=== PATIENT | female | born 1975 | race Caucasian/White ===

== ENCOUNTER 2018-04-11 10:14 | Emergency (ER) | payer OTHER ==
[2018-04-11] MEDS ORDERED: SODIUM CHLORIDE 1,000 ML IV STA (10:39)
[2018-04-11] MEDS ORDERED: ALBUTEROL SO4 0.083% IH SOL 2.5 MG/3 ML VIAL.NEB. NEB ONE ×2 (10:40→11:20)
[2018-04-11] MEDS ORDERED: IBUPROFEN 800 MG/8 ML IJ IVPB ONE ×2 (10:40→11:20)
[2018-04-11 10:41] VITALS: BMI 37.4
--- NOTE | 2018-04-11 10:45 | PDOC ---
History of Present Illness - General Chief Complaint: Chest Pain Stated Complaint: CHEST PAIN SHORT OF BREATH Time Seen by Provider: 04/11/18 10:15 History Source: Patient Exam Limitations: No Limitations - History of Present Illness Initial Comments: 04/11/18 10:41 Mr. Damian is a 42-year-old female with a history of hypothyroidism, asthma, obstructive sleep apnea who presents to the emergency department with a complaint of chest pain and shortness of breath. Patient states she has had a cough for approximately 3 weeks. She has intermittently been taking albuterol for this. Last night she noted that when she coughs she developed chest pain. She continued to have these symptoms today and this was associated with dizziness. This probably her visit to the ER. Patient states she last took Advil at approximately 6:30 this morning She denies any recent travel. She denies ill contacts. No flu shot. She denies nausea, vomiting, diarrhea. She denies abdominal pain. She denies dysuria, flank pain. PMH: Hypothyroidism, objective sleep apnea, asthma PSH: 3, tummy tuck Medication: Levothyroxine 25 g, albuterol when necessary ALLERGIES: Shrimp, IV/by mouth contrast Social: Denies alcohol, drug, cigarette, marijuana use ROS: GENERAL/CONSTITUTIONAL: Yes: fever, chills, weakness HEAD, EYES, EARS, NOSE AND THROAT: No: change in vision, ear pain, discharge, sore throat, throat swelling. CARDIOVASCULAR: Yes: chest pain No: lightheadedness, palpitations, syncope RESPIRATORY: Yes: cough, shortness of breath, wheezing GASTROINTESTINAL: No: nausea, vomiting, diarrhea, abdominal pain GENITOURINARY: No: dysuria, hematuria, frequency, urgency, flank pain. MUSCULOSKELETAL: No: back pain SKIN AND BREASTS: No: lesions, pallor, rash or easy bruising. NEUROLOGIC: No: headache, vertigo, paresthesias, weakness ENDOCRINE: No: unexplained weight gain or loss HEMATOLOGIC/LYMPHATIC: No: anemia, easy bleeding, swelling nodes. PE: GENERAL: The patient is in no acute distress. HEAD: Normal EYES: PERRLA, EOMI, sclera anicteric, conjunctiva clear. ENT: Ears normal, nares patent, oropharynx clear without exudates. Moist mucous membranes. NECK: Normal range of motion, supple without lymphadenopathy, JVD, or masses. LUNGS: (+) coughing, expiratory wheezing left >right HEART: Tachycardia, regular rhythm, no murmur ABDOMEN: Soft, nontender, normoactive bowel sounds. No guarding, no rebound. No masses palpable. EXTREMITIES: Normal range of motion, no edema. . NEUROLOGICAL: Cranial nerves II through XII grossly intact. Normal speech. No focal neurological deficits. MUSCULOSKELETAL: no CVA tenderness SKIN: Warm, Dry, normal turgor, no rashes or lesions noted. Past History - Past Medical History Allergies/Adverse Reactions: Allergies Allergy/AdvReac Type Severity Reaction Status Date / Time Iodinated Contrast- Oral and Allergy Severe Verified 04/11/18 10:25 IV Dye Home Medications: Ambulatory Orders Albuterol 0.083% Nebulizer Alaina [Ventolin 0.083% Nebulizer Soln -] 1 neb NEB Q6H #30 vial 04/11/18 Albuterol Sulfate Inhaler - [Ventolin HFA Inhaler -] 1 puff IN PRN 04/11/18 Amoxicillin/Potassium Clav [Augmentin 875-125 Tablet] 1 each PO BID #14 tablet 04/11/18 Azithromycin [Zithromax 250mg Tablets -] 250 mg PO UTDICT #6 tab 04/11/18 Benzonatate [Tessalon Pearls -] 100 mg PO TID PRN #21 capsule 04/11/18 Ferrous Sulfate, Dried [Iron] 159 mg PO DAILY 04/11/18 Guaifenesin [Mucinex -] 600 mg PO BID #14 tablet.er 04/11/18 Levothyroxine [Synthroid -] 1 tab PO DAILY 04/11/18 Nebulizer and Compressor [Comp-Air Nebulizer System] 1 each .ROUTE ASDIR PRN #1 each 04/11/18 Asthma: Yes COPD: No Thyroid Disease: Yes - Suicide/Smoking/Psychosocial Hx Smoking History: Never smoked Information on smoking cessation initiated: No Hx Alcohol Use: No Drug/Substance Use Hx: No *Physical Exam - Vital Signs Last Vital Signs Temp Pulse Resp BP Pulse Ox 99.7 F H 128 H 20 121/75 100 04/11/18 10:15 04/11/18 10:15 04/11/18 10:15 04/11/18 10:15 04/11/18 10:15 Moderate Sedation - Procedure Monitoring Vital Signs: Procedure Monitoring Vital Signs Temperature 99.7 F H 04/11/18 10:15 Pulse Rate 128 H 04/11/18 10:15 Respiratory Rate 20 04/11/18 10:15 Blood Pressure 121/75 04/11/18 10:15 O2 Sat by Pulse Oximetry (%) 100 04/11/18 10:15 ED Treatment Course - LABORATORY CBC & Chemistry Diagram: 04/11/18 11:17 04/11/18 11:17 - RADIOLOGY Radiology Studies Ordered: Category Date Time Status CHEST PA & LAT [RAD] Stat Radiology 04/11/18 10:40 Ordered Medical Decision Making - Medical Decision Making 04/11/18 10:45 Selected Entries 04/11/18 10:15 Temperature 99.7 F H Pulse Rate 128 H Respiratory 20 Rate Blood Pressure 121/75 O2 Sat by Pulse 100 Oximetry (%) Rectal temp 101.3 Will do: Labs, IVF CXR Motrin Nebs Re Assess 04/11/18 11:06 EKG : Sinus tachycardia rate of 125 bpm, axis nml, intervals nml, no st elevation or depression 04/11/18 11:32 Laboratory Tests 04/11/18 04/11/18 10:29 11:17 WBC 7.0 Hgb 11.0 Hct 34.2 Plt Count 402 Urine Blood Negative Urine Nitrite Negative Ur Leukocyte Esterase Negative Urine HCG, Qual Negative 04/11/18 12:09 CXR demonstrates RML consolidation CURB-65 0 Reasonable to start with outpatient treatment Will give Ceftriaxone and Azithromycin Will discharge on Augmentin and Azithromycin Pt asked to monitor for fevers and progression of shortness of breath.chest pain pt asked to follow up with PMD on Monday or Monday (in 2 or 3 business days) Pt given copies of CXR and labs 04/11/18 12:56 *DC/Admit/Observation/Transfer Diagnosis at time of Disposition: Pneumonia Qualifiers: Pneumonia type: due to unspecified organism Laterality: right Lung location: middle lobe of lung Qualified Code(s): J18.1 - Lobar pneumonia, unspecified organism - Discharge Dispostion Disposition: HOME Condition at time of disposition: Stable Decision to Admit order: No - Prescriptions Prescriptions: Albuterol 0.083% Nebulizer Alaina [Ventolin 0.083% Nebulizer Soln -] 1 neb NEB Q6H #30 vial Amoxicillin/Potassium Clav [Augmentin 875-125 Tablet] 1 each PO BID #14 tablet Azithromycin [Zithromax 250mg Tablets -] 250 mg PO UTDICT #6 tab Benzonatate [Tessalon Pearls -] 100 mg PO TID PRN #21 capsule PRN Reason: Cough Guaifenesin [Mucinex -] 600 mg PO BID #14 tablet.er Nebulizer and Compressor [Comp-Air Nebulizer System] 1 each .ROUTE ASDIR PRN #1 each PRN Reason: Shortness Of Breath - Referrals - Patient Instructions Printed Discharge Instructions: DI for Pneumonia -- Adult Additional Instructions: Thank you for coming in to the ER today YOU HAVE PNEUMONIA You were given 2 antibiotics in the ER You will be taking 2 additional antibiotics at home Please be sure to monitor yourself for fevers Please take Motin 600mg with food or milk in alternation with Tylenol 1000mg ( 2 extra strength tylenols) as needed for fevers, body aches Please stay well hydrated You MUST follow up with your primary care physician within 2 -3 business days for re assessment If you are not improving on oral antibiotics, you will need to be admitted to the hospital - Post Discharge Activity Forms/Work/School Notes: Back to Work
[2018-04-11 10:52] LABS: HCG,QUALITATIVE URINE Negative
[2018-04-11 11:03] LABS: URINE APPEARANCE Clear; URINE BILIRUBIN Negative (NEGATIVE); URINE COLOR Yellow; URINE GLUCOSE (UA) Negative (NEGATIVE); URINE KETONE Trace (NEGATIVE); URINE LEUK ESTERASE Negative (NEGATIVE); URINE NITRITE Negative (NEGATIVE); URINE PROTEIN Negative (NEGATIVE); URINE UROBILINOGEN 0.2 (0.2-1.0)
[2018-04-11 11:27] LABS: BASO % 0.5 % (0-2.0); EOS % 2.2 % (0-4.5); HEMATOCRIT 34.2 % (32.4-45.2); MCH 26.5 pg (25.7-33.7); MCHC 32.2 g/dl (32.0-36.0); MEAN CELL VOLUME 82.4 fl (80-96); MEAN PLT VOLUME 7.2 fl (7.5-11.1); MONO % 9.1 % (3.8-10.2); NEUT % 76.2 % (42.8-82.8); PLATELET COUNT 402 K/MM3 (134-434); RBC 4.14 M/mm3 (3.60-5.2)
[2018-04-11 11:39] LABS: ALBUMIN 3.7 g/dl (3.4-5.0); ALK PHOS 72 U/L (45-117); ANION GAP 4 MMOL/L (8-16); BILIRUBIN,TOTAL 0.3 mg/dl (0.2-1); BLOOD UREA NITROGEN 9 mg/dl (7-18); CALCIUM 8.9 mg/dl (8.5-10); CHLORIDE 105 mmol/L (98-107); CO2 24 mmol/L (21-32); CREATININE 0.5 mg/dl (0.55-1.3); GLUCOSE,RANDOM 95 mg/dl (74-106); POTASSIUM 3.6 mmol/L (3.5-5.1); SGOT/AST 17 U/L (15-37); SGPT/ALT 15 U/L (13-61); SODIUM 133 mmol/L (136-145)
[2018-04-11] MEDS ORDERED: AZITHROMYCIN IVPB 500 MG in DEXTROSE 5%-WATER - 250 ML IVPB ONE (12:04)
[2018-04-11] MEDS ORDERED: CEFTRIAXONE 1 GM in DEXTROSE 5%-WATER - 50 ML IVPB ONE (12:04)
[2018-04-11] MEDS ORDERED: AZITHROMYCIN 500 MG VIAL IVPB ONE (12:06)
[2018-04-11] MEDS ORDERED: cefTRIAXone SODIUM 1 GM VIAL ONE (12:07)
[2018-04-11 13:23] VITALS: BP 97/51; PULSE 115; TEMP 99.2
--- NOTE | 2018-04-12 16:46 | EKG ---
Test Reason : Blood Pressure : / mmHG Vent. Rate : 125 BPM Atrial Rate : 125 BPM P-R Int : 154 ms QRS Dur : 078 ms QT Int : 300 ms P-R-T Axes : 055 024 023 degrees QTc Int : 433 ms SINUS TACHYCARDIA POSSIBLE LEFT ATRIAL ENLARGEMENT BORDERLINE ECG NO PREVIOUS ECGS AVAILABLE Confirmed by CHINYERE JACK, TAMI ([id number]) on 04/12/2018 4:46:18 PM Referred By: COLT JORDAN Confirmed By:TAMI WHITLOCK MD
== END 2018-04-11 14:24 | disposition home or self-care (01) ==
LOC: FER 10:14
PROC: 3E03329 Introduction of Other Anti-infective into Peripheral Vein, Percutaneous Approach (ICD-10-PCS; principal; 2018-04-11)
PROC: 3E033GC Introduction of Other Therapeutic Substance into Peripheral Vein, Percutaneous Approach (ICD-10-PCS; 2018-04-11)
PROC: 3E0337Z Introduction of Electrolytic and Water Balance Substance into Peripheral Vein, Percutaneous Approach (ICD-10-PCS; 2018-04-11)
PROC: 3E0F7GC Introduction of Other Therapeutic Substance into Respiratory Tract, Via Natural or Artificial Opening (ICD-10-PCS; 2018-04-11)
DX: J18.1 Lobar pneumonia, unspecified organism (principal); E03.9 Hypothyroidism, unspecified; J45.909 Unspecified asthma, uncomplicated; G47.33 Obstructive sleep apnea (adult) (pediatric)
CPT/HCPCS: 36415; 71046-TC-FY; 80053; 81003; 84703; 85025; 87086; 93005; 94640; 96361; 96365; 96368; 96375; 99284-25; J7030

== ENCOUNTER 2023-08-21 09:56 | Day surgery (SDC) | payer OTHER ==
[2023-08-21] MEDS: FERRIC CARBOXYMALTOSE 750 MG in SODIUM CHLORIDE 250 ML IVPB ONE (10:08)
[2023-08-21] MEDS: CYANOCOBALAMIN (VITAMIN B-12) 1000 MCG/1 ML VIAL IM ONE (10:44)
[2023-08-21 14:33] VITALS: RESP 18; TEMP 98.2
[2023-08-21 14:37] VITALS: BP 100/60; PULSE 69
== END 2023-08-21 12:00 | disposition home or self-care (01) ==
LOC: JONCCHEMO 09:56 → J7W 09:56 → JONCCHEMO 12:00
PROVIDERS: ATTEND Internal Medicine Hematology & Oncology
PROC: 3E033GC Introduction of Other Therapeutic Substance into Peripheral Vein, Percutaneous Approach (ICD-10-PCS; principal; 2023-08-21)
DX: D50.9 Iron deficiency anemia, unspecified (principal)
CPT/HCPCS: 96365; J1439

== ENCOUNTER 2023-08-28 09:47 | Day surgery (SDC) | payer OTHER ==
[2023-08-28] MEDS: FERRIC CARBOXYMALTOSE 750 MG in SODIUM CHLORIDE 250 ML IVPB ONE (10:14)
[2023-08-28] MEDS: CYANOCOBALAMIN (VITAMIN B-12) 1000 MCG/1 ML VIAL IM ONE (10:44)
[2023-08-28 14:21] VITALS: RESP 18; TEMP 98.4
[2023-08-28 14:25] VITALS: BP 90/55; PULSE 69
== END 2023-08-28 11:15 | disposition home or self-care (01) ==
LOC: JONCCHEMO 09:47 → J7W 09:48 → JONCCHEMO 11:15
PROVIDERS: ATTEND Internal Medicine Hematology & Oncology
PROC: 3E033GC Introduction of Other Therapeutic Substance into Peripheral Vein, Percutaneous Approach (ICD-10-PCS; principal; 2023-08-28)
DX: D50.9 Iron deficiency anemia, unspecified (principal)
CPT/HCPCS: 96365; J1439